=== PATIENT | female | born 1960 | race Caucasian/White ===

== ENCOUNTER 2016-12-29 08:02 | Emergency (ER) | payer MEDICAID ==
[~2016-12-29] VITALS: Ht 154.9 cm; Wt 65.0 kg
[2016-12-29 08:04] VITALS: Ht 154.9 cm; Wt 65.0 kg
--- NOTE | 2016-12-29 08:55 | ERD ---
ER Documentation Chief Complaint Date/Time DATE: 12/29/16 TIME: 08:52 Chief Complaint left shoulder pain x 7 days HPI This a 56-year-old female who presents the emergency department today for a ball on her left shoulder for the past 7 days. Denies any trauma. Denies any fevers or chills ROS All systems reviewed and are negative except as per history of present illness. Medications Home Meds Active Scripts Ibuprofen* (Motrin*) 600 Mg Tab, 600 MG PO Q6, #30 TAB Prov:RANJEET DELGADILLO-C 12/29/16 Hydrocodone/Acetaminophen (Renner 5-325 Tablet) 1 Each Tablet, 1 TAB PO Q6H Y for PAIN, #10 TAB Prov:PRORANJEET MCKEON-C 12/29/16 Sulfamethoxazole/Trimethoprim* (Bactrim Ds* Tablet) 1 Each Tablet, 1 TAB PO BID for 7 Days, #14 TAB Prov:RANJEET DELGADILLO-C 12/29/16 Cephalexin* (Keflex*) 500 Mg Capsule, 500 MG PO QID for 7 Days, CAP Prov:PRORANJEET MCKEON PA-C 12/29/16 Allergies Allergies: Coded Allergies: No Known Allergy (Unverified , 05/01/15) PMhx/Soc Medical and Surgical Hx: pt denies Medical Hx, pt denies Surgical Hx Hx Alcohol Use: No Hx Substance Use: No Hx Tobacco Use: No Smoking Status: Never smoker Physical Exam Vitals Vital Signs Date Time Temp Pulse Resp B/P Pulse Ox O2 Delivery O2 Flow Rate FiO2 12/29/16 08:04 98.2 77 17 186/91 98 Physical Exam Const: No acute distress Head: Atraumatic Eyes: Normal Conjunctiva ENT: Normal External Ears, Nose and Mouth. Neck: Full range of motion..~ No meningismus. Resp: Clear to auscultation bilaterally Cardio: Regular rate and rhythm, no murmurs Skin: 2 cm abscess posterior aspect of shoulder with fluctuance and mild localized erythema. No purulent drainage Back: No midline or flank tenderness MSk: Left shoulder full active range of motion. Pulses 2+. Distal neurovascular intact. Evidence of 2 cm abscess posterior aspect of shoulder with flexion some mild localized erythema. No purulent drainage Neur: Awake and alert Psych: Normal Mood and Affect Results 24 hrs Current Medications Medications (Trade) Dose Ordered Sig/Francisca Route PRN Reason Start Time Stop Time Status Last Admin Dose Admin Lidocaine (Xylocaine 1% (Mdv) 20 ml) 20 ml ONCE ONCE SC 12/29/16 09:00 12/29/16 09:01 DC 12/29/16 08:41 Acetaminophen/ Hydrocodone Bitart (Renner (5/325)) 1 tab ONCE ONCE PO 12/29/16 09:00 12/29/16 09:01 DC 12/29/16 08:40 Procedures/MDM This 56-year-old female who presents to the emergency department today for a "ball" on the back of her shoulder. Patient indicated the been there for approximately 7 days. On physical exam there appears to be an abscess on the posterior aspect of the patient's left shoulder. There is fluctuance and localized erythema.Patient symptoms at this time most consistent with localized abscess. Patient is afebrile and otherwise well-appearing. Low suspicion for sepsis, deep space tracking infection, cellulitis I did explain to the patient that I could do an incision and drainage and help drain some of the fluid that was in there. Patient agreed to proceed. Patient tolerated the procedure well and there were no complications. Wound was cleaned in the usual sterile fashion. Abscess Incision and Drainage with irrigation by me: Location: Left shoulder posterior aspect Anesthesia: [Local 1% Lidocaine] 3 cc Technique: [Irrigated. Disrupted loculations w/ instrumentation ] Packin/4 in iodoform Complications: [Neurovascularly intact post procedure] 48 hour wound check. Scar minimization instructions given. A large amount of cystic-like material was removed and the head of the cyst. Symptoms were consistent with infected sebaceous cyst versus abscess. Patient's skin symptoms have stabilized while they have been evaluated in the department and are appropriate for outpatient care and work up. Exam and w/u not consistent w/ sepsis, deep space infection, or foreign body. Patient was given Renner here in the emergency department. Patient be given a prescription for Keflex and Bactrim. I will also give her a prescription for a short course of Renner and Motrin for home. She was instructed to return in 48 hours for wound check. At this time the patient is stable for discharge and outpatient management. Patient should follow up with their PCP in the next 1-2 days. They may return to the emergency department sooner for any persistent or worsening of symptoms. Patient understood and agreed with the plan. Departure Diagnosis: Primary Impression: Abscess Condition: Fair RANJEET DELGADILLO PA-C December 29, 2016 08:55
[2016-12-29] MEDS ORDERED: LIDOCAINE 1% (MDV) 20 ML INJ SC ONE (09:00)
[2016-12-29] MEDS ORDERED: HYDROCODONE/APAP (5/325) TAB PO ONE (09:00)
[2016-12-29] MEDS ORDERED: SULF1TAB31 PO (09:27)
[2016-12-29] MEDS ORDERED: CEPH-443 PO (09:27)
[2016-12-29] MEDS ORDERED: IBUP-1542 PO (09:28)
[2016-12-29] MEDS ORDERED: HYDR-906 PO (09:28)
== END 2016-12-29 09:36 | disposition home or self-care (01) ==
LOC: FTE 08:02
DX: L02.414 Cutaneous abscess of left upper limb (principal)
CPT/HCPCS: 10061; Z7502; Z7610

== ENCOUNTER 2017-01-01 10:27 | Emergency (ER) | payer MEDICAID ==
[~2017-01-01] VITALS: Ht 154.9 cm; Wt 78.0 kg
[~2017-01-01 10:27] MED LIST: CEPH-443 PO; HYDR-906 PO; IBUP-1542 PO; SULF1TAB31 PO
[2017-01-01 10:28] VITALS: Ht 154.9 cm; Wt 78.0 kg
--- NOTE | 2017-01-01 11:36 | ERD ---
ER Documentation Chief Complaint Date/Time DATE: 01/01/17 TIME: 11:33 Chief Complaint recheck s/p i&d upper back abcess HPI 56-year-old female patient with no significant past medical history presents to the ED for a wound check of an abscess vs infected sebaceous cyst that she got drained 2 days ago here in the ED. States that the ball like lump on her back has been there for the last 9 days until she got drained 2 days ago. Denies any trauma. Patient states that she has been taking her antibiotics consistently. States that the pain has improved. Denies any fever, chills, chest pain, shortness of breath, abdominal pain, nausea, vomiting, increased swelling or redness. ROS All systems reviewed and are negative except as per history of present illness. Medications Home Meds Active Scripts Ibuprofen* (Motrin*) 600 Mg Tab, 600 MG PO Q6, #30 TAB Prov:RANJEET DELGADILLO-C 12/29/16 Hydrocodone/Acetaminophen (Sylvania 5-325 Tablet) 1 Each Tablet, 1 TAB PO Q6H Y for PAIN, #10 TAB Prov:RANJEET DELGADILLO PA-C 12/29/16 Sulfamethoxazole/Trimethoprim* (Bactrim Ds* Tablet) 1 Each Tablet, 1 TAB PO BID for 7 Days, #14 TAB Prov:RANJEET DELGADILLO-C 12/29/16 Cephalexin* (Keflex*) 500 Mg Capsule, 500 MG PO QID for 7 Days, CAP Prov:RANJEET DELGADILLO PA-C 12/29/16 Allergies Allergies: Coded Allergies: No Known Allergy (Unverified , 05/01/15) PMhx/Soc Medical and Surgical Hx: pt denies Medical Hx, pt denies Surgical Hx Hx Alcohol Use: No Hx Substance Use: No Hx Tobacco Use: No Smoking Status: Never smoker Physical Exam Vitals Vital Signs Date Time Temp Pulse Resp B/P Pulse Ox O2 Delivery O2 Flow Rate FiO2 01/01/17 10:28 98.1 90 20 150/79 99 Physical Exam Const: Vsj-fti-vwaajikaf, well-nourished. In no acute distress. Head: Atraumatic, normocephalic Eyes: Normal Conjunctiva without injection. No purulent discharge. PERRL. EOMI ENT: Normal external ear. Ear canal without erythema. Tympanic membrane pearly pan without effusion or bulging. Nasal canal clear with normal turbinates. Moist oropharynx without tonsillar exudates. Non-erythematous pharynx. Uvula midline. No drooling. No trismus. Neck: Full range of motion. No meningismus. No cervical lymphadenopathy. Resp: Clear to auscultation bilaterally. No wheezing, rhonchi, rales, or crackles. No accessory muscle use. No retractions. Cardio: Regular rate and rhythm. No murmurs, rubs or gallops. Skin: No petechiae or rashes. 2 cm abscess with 1 cm prior incision on posterior aspect of shoulder with no fluctuance or erythema. No purulent drainage. No bleeding noted. Iodoform packing noted. Back: No midline tenderness. No CVA tenderness. Ext: No cyanosis, or edema. Neur: Awake and alert. Psych: Normal Mood and Affect Procedures/MDM This is a 56-year-old female patient with no significant past medical history presents to the ED for a wound check of an abscess that got drained 2 days ago. Patient is afebrile and nontoxic-appearing. Patient has normal vital signs. 5 cm 1/4iodoform packing was removed at this time without any difficulty or complications. No indication for repacking as it is healing appropriately. Low suspicion for deep space infection, cellulitis, or other emergent conditions. New clean dressing was applied at this time. Patient's skin symptoms have stabilized while they have been evaluated in the department and are appropriate for outpatient care and work up. Exam and w/u not consistent w/ sepsis, deep space infection, or foreign body. Discharge medications: Instructed patient to continue taking her course of antibiotics. Follow up with primary care physician in 2-3 days. Instructed patient to return to the ED sooner for any worsening symptoms. Patient's questions were answered. Patient understood and agreed with discharge plan. Patient discharged stable. Departure Diagnosis: Primary Impression: Encounter for wound re-check Condition: Stable Patient Instructions: Wound Care, Abscess, Packing Removal Referrals: [facility] Usted se powers hecho un examen mdico de control que le indica que no est en jeff condicin que requiera tratamiento urgente en el Departamento de Emergencia. Un estudio ms profundo y el tratamiento de quinones condicin pueden esperar sin ningn riesgo hasta que usted sea atendida/o en el consultorio de quinones mdico o jeff cl josé. Es responsabilidad suya arreglar jeff mahogany para el seguimiento del lindsay. MANEJO DE CONDICIONES NO URGENTES EN EL FUTURO 1) Si usted tiene un mdico de atencin primaria: Usted debera llamar a quinones mdico de atencin primaria antes de venir al departamento de emergencia. Despus de las horas de consultorio, quinones doctor o quinones asociado/a est disponible por telfono. El mdico o enfermero de puma en el servicio telefnico puede asesorarle por raji medio para atender el problema, o lindsay contrario se puede programar ejff mahogany. 2) Si usted no tiene un mdico de atencin primaria: Llame al mdico o clnica de referencia que aparece abajo shlomo las horas de consultorio para hacer jeff mahogany para que le vean. CLINICAS: [place] [id number] [phone] [facility] [phone] [address] [facility]. [facility] [phone] [address] [facility]. [place] [phone] [address] [facility]. [place] [id number] [phone] [facility]. [phone] [facility] () Usted se powers hecho un examen mdico de control que le indica que no est en jeff condicin que requiera tratamiento urgente en el Departamento de Emergencia. Un estudio ms profundo y el tratamiento de quinones condicin pueden esperar sin ningn riesgo hasta que usted sea atendida/o en el consultorio de quinones mdico o jeff cl josé. Es responsabilidad suya arreglar jeff mahogany para el seguimiento del lindsay. MANEJO DE CONDICIONES NO URGENTES EN EL FUTURO 1) Si usted tiene un mdico de atencin primaria: Usted debera llamar a quinones mdico de atencin primaria antes de venir al departamento de emergencia. Despus de las horas de consultorio, quinones doctor o quinones asociado/a est disponible por telfono. El mdico o enfermero de puma en el servicio telefnico puede asesorarle por raji medio para atender el problema, o lindsay contrario se puede programar jeff mahogany. 2) Si usted no tiene un mdico de atencin primaria: Llame al mdico o condado institucions de referencia que aparece abajo shlomo las horas de consultorio para hacer jeff mahogany para que le vean. SI USTED NO PUEDE PAGAR PARA MAAME UN MEDICO puede ir a: [facility] [address] [place] [address] [facility] [address] [place] [address] [facility] [address] [place] [address] [facility] [address] [place], [place] [id number] Additional Instructions: Completar todos los antibiticos Llame al doctor MAANA y mamie jeff MAHOGANY PARA DENTRO DE 2-3 CHAN.Dgale a la secretaria que nosotros le instruimos hacer esta mahogany.Avise o llame si quinones condicin se empeora antes de la mahogany. Regresa aqui si peor o no mejor. MONIE WILSON PA-C January 01, 2017 11:36
== END 2017-01-01 11:47 | disposition home or self-care (01) ==
LOC: FTE 10:27
DX: Z48.01 Encounter for change or removal of surgical wound dressing (principal)

== ENCOUNTER 2018-08-23 08:48 | Emergency (ER) | payer MEDICAID ==
[~2018-08-23] VITALS: Ht 167.6 cm; Wt 66.9 kg
[~2018-08-23 08:48] MED LIST changes: +HYDR-4011 PO; -HYDR-906 PO
[2018-08-23 08:51] VITALS: BP 135/74; PULSE 95; RESP 20; Ht 167.6 cm; Wt 66.9 kg
[2018-08-23] MEDS ORDERED: CETI10CA PO (09:19)
[2018-08-23] MEDS ORDERED: D-ME473S2 PO (09:19)
[2018-08-23] MEDS ORDERED: ACET500C5 PO (09:19)
--- NOTE | 2018-08-23 11:08 | ERD ---
ER Documentation Chief Complaint Chief Complaint Complains of a sore throat x 3 days HPI 58-year-old female patient with no significant past medical history presents the ED complaining of sore throat, productive cough that started 4 days ago. Patient reports that she has not tried taking medications at home. Denies any sick contacts. Denies any fever, chills, nausea, vomiting, diarrhea, neck stiffness, abdominal pain, chest pain, dyspnea on exertion, orthopnea. She reports that she is able to swallow liquids and solids without any difficulty. ROS All systems reviewed and are negative except as per history of present illness. Medications Home Meds Active Scripts Cetirizine Hcl* (Zyrtec*) 10 Mg Capsule, 10 MG PO DAILY, #10 TAB.CHEW Prov:MONIE WILSON-C 08/23/18 Acetaminophen* (Tylophen*) 500 Mg Capsule, 1 CAP PO Q6H PRN for PAIN AND OR ELEVATED TEMP, #20 CAP Prov:MONIE WILSON-C 08/23/18 Dextromethorphan Hb-Promethazine Hcl* (Promethazine DM* Syrup) 473 Ml Syrup, 5 ML PO Q6 PRN for COUGH, #100 ML Prov:MONIE WILSON-C 08/23/18 Ibuprofen* (Motrin*) 600 Mg Tab, 600 MG PO Q6, #30 TAB Prov:RANJEET DELGADILLO-C 12/29/16 Hydrocodone/Acetaminophen ([place] 5-325 Tablet) 1 Each Tablet, 1 TAB PO Q6H PRN for PAIN, #10 TAB Prov:RANJEET DELGADILLO-C 12/29/16 Sulfamethoxazole/Trimethoprim* (Bactrim Ds* Tablet) 1 Each Tablet, 1 TAB PO BID for 7 Days, #14 TAB Prov:RANJEET DELGADILLO-C 12/29/16 Cephalexin* (Keflex*) 500 Mg Capsule, 500 MG PO QID for 7 Days, CAP Prov:RANJEET DELGADILLO-C 12/29/16 Allergies Allergies: Coded Allergies: No Known Allergy (Unverified , 05/01/15) PMhx/Soc History of Surgery: Yes (Hysterectomy) Anesthesia Reaction: No Hx Cardiac Disorders: Yes (HTN) Hx Alcohol Use: No Hx Substance Use: No Hx Tobacco Use: No Smoking Status: Never smoker FmHx Family History: No diabetes, No coronary disease Physical Exam Vitals Vital Signs Date Temp Pulse Resp B/P (MAP) Pulse Ox O2 O2 Flow FiO2 Time Delivery Rate 08/23/18 99.1 95 20 135/74 97 08:51 (94) Physical Exam Const: Tuo-jzs-zfyqtfjzr, well-nourished. In no acute distress. Head: Atraumatic, normocephalic Eyes: Normal Conjunctiva without injection. No purulent discharge. PERRL. EOMI ENT: Normal external ear. Ear canal without erythema. Tympanic membrane pearly pan without effusion or bulging. Nasal canal clear with normal turbinates. Moist oropharynx without tonsillar exudates. Non-erythematous pharynx. Uvula midline. No drooling. No trismus. Neck: Full range of motion. No meningismus. No cervical lymphadenopathy. Resp: Clear to auscultation bilaterally. No wheezing, rhonchi, rales, or crackles. No accessory muscle use. No retractions. Cardio: Regular rate and rhythm. No murmurs, rubs or gallops. Abd: Soft, non tender, non distended. Normal bowel sounds. No palpable masses. No rebound tenderness. No guarding. Skin: No petechiae or rashes Back: No midline tenderness. No CVA tenderness. Ext: No cyanosis, or edema. Neur: Awake and alert. Psych: Normal Mood and Affect Procedures/MDM 58-year-old female patient with no significant past medical history presents to ED complaining of sore throat, productive cough that started 4 days ago. Patient is afebrile and nontoxic-appearing. This patient presents to the ED with symptoms consistent with a viral acute upper respiratory infection. Patient's physical exam include lungs which were clear to auscultation and a normal pulse oximetry. There is a low suspicion for pneumonia, pneumothorax, mononucleosis, pulmonary embolism, epiglottitis, otitis media, otitis externa, viral/strep pharyngitis, sinusitis, myocarditis, pericarditis, endocarditis, peritonsillar abscess, mastoiditis, retropharyngeal abscess, meningitis, sepsis, acute abdomen or other emergent conditions. Fluids, rest, and symptomatic treatment are recommended for the management of patient's symptoms. Diagnosis: Sore throat, Cough Discharge medications: Tylenol, Promethazine DM, Zyrtec Patient was instructed to return to the ED for any new or worsening symptoms. They should otherwise follow up with the primary care provider within 2-3 days. The patient's questions were answered at the time of discharge. Patient understood and agreed with discharge management. Disclaimer: Inadvertent spelling and grammatical errors are likely due to EHR/dictation software use and do not reflect on the overall quality of patient care. Also, please note that the electronic time recorded on this note does not necessarily reflect the actual time of the patient encounter. Departure Diagnosis: Primary Impression: Sore throat Additional Impression: Cough Condition: Stable Patient Instructions: Uri, Viral, No Abx (Adult) Referrals: [facility] Usted se powers hecho un examen mdico de control que le indica que no est en jeff condicin que requiera tratamiento urgente en el Departamento de Emergencia. Un estudio ms profundo y el tratamiento de quinones condicin pueden esperar sin ningn riesgo hasta que usted sea atendida/o en el consultorio de quinones mdico o jeff clnica. Es responsabilidad suya arreglar jeff mahogany para el seguimiento del lindsay. MANEJO DE CONDICIONES NO URGENTES EN EL FUTURO 1) Si usted tiene un mdico de atencin primaria: Usted debera llamar a quinones mdico de atencin primaria antes de venir al departamento de emergencia. Despus de las horas de consultorio, quinones doctor o quinones asociado/a est disponible por telfono. El mdico o enfermero de puma en el servicio telefnico puede asesorarle por raji medio para atender el problema, o lindsay contrario se puede programar jeff mahogany. 2) Si usted no tiene un mdico de atencin primaria: Llame al mdico o clnica de referencia que aparece abajo shlomo las horas de consultorio para hacer jeff mahogany para que le vean. CLINICAS: [facility] [phone] [facility] [phone] [facility] [phone] [place] [address] [phone] [place] [address] [phone] [place] [phone] [address] [facility] () Usted se powers hecho un examen mdico de control que le indica que no est en jeff condicin que requiera tratamiento urgente en el Departamento de Emergencia. Un estudio ms profundo y el tratamiento de quinones condicin pueden esperar sin ningn riesgo hasta que usted sea atendida/o en el consultorio de quinones mdico o jeff clnica. Es responsabilidad suya arreglar jeff mahogany para el seguimiento del lindsay. MANEJO DE CONDICIONES NO URGENTES EN EL FUTURO 1) Si usted tiene un mdico de atencin primaria: Usted debera llamar a quinones mdico de atencin primaria antes de venir al departamento de emergencia. Despus de las horas de consultorio, quinones doctor o quinones asociado/a est disponible por telfono. El mdico o enfermero de puma en el servicio telefnico puede asesorarle por raji medio para atender el problema, o lindsay contrario se puede programar jeff mahogany. 2) Si usted no tiene un mdico de atencin primaria: Llame al mdico o condado institucions de referencia que aparece abajo shlomo las horas de consultorio para hacer jeff mahogany para que le vean. SI USTED NO PUEDE PAGAR PARA MAAME UN MEDICO puede ir a: [facility] [address] [place] [address] [facility] [address] [place] [address] [facility] [address] [place] [address] [facility] [address] [place], [place] [phone] Additional Instructions: Llame al doctor MAANA y mamie jeff MAHOGANY PARA DENTRO DE 2-3 CHAN.Dgale a la secretaria que nosotros le instruimos hacer esta mahogany.Avise o llame si quinones condicin se empeora antes de la mahogany. Regresa aqui si peor o no mejor. MONIE WILSON PA-C Aug 23, 2018 11:08
== END 2018-08-23 09:31 | disposition home or self-care (01) ==
LOC: FTE 08:48
DX: J02.9 Acute pharyngitis, unspecified (principal); I10 Essential (primary) hypertension
CPT/HCPCS: 99283